=== PATIENT | female | born 1940 | race Caucasian/White ===

== ENCOUNTER → 2018-03-26 | Outpatient (CLI) | END | disposition home or self-care (01) ==

== ENCOUNTER → 2018-06-25 | Outpatient (CLI) | payer MEDICARE, OTHER ==
[~2018-06-25] MED LIST: ACET-514 PO; ASPI-535 PO; CLON-230 PO; DIPHENHYDRAMINE 50 MG INJ ONE; DOCU-159 PO; IOHEXOL 100 ML ONE; ISOS30TA55 PO; LORA-401 PO; METO25TA4 PO; METO5AMP3 IJ; METOPROLOL 5 MG INJ ONE; NITR0.4T32 SL; NITROGLYCERIN AEROSOL (4.9 GM) ONE; OMEP40CA3 PO; SIMV20TA2 PO; SOD CHLORIDE 0.9% 100 ML ONE
== END | disposition home or self-care (01) ==
LOC: LAB 08:41
PROVIDERS: ATTEND Internal Medicine
DX: R07.9 Chest pain, unspecified (principal); R94.39 Abnormal result of other cardiovascular function study
CPT/HCPCS: 75571; 75574; 80048; J1200; Q9967